=== PATIENT | male | born 1985 | race Hispanic/Latino ===

== ENCOUNTER 2017-07-31 12:07 | Emergency (ER) | payer BC ==
[2017-07-31 12:15] VITALS: BP 135/81; PULSE 79; RESP 20; TEMP 98; O2SAT 98
[2017-07-31] MEDS ORDERED: Liquid Adhesive TOP ONE (12:28)
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
--- NOTE | 2017-07-31 14:59 | RAD ---
PROCEDURE: Radiographs of Nasal Bones HISTORY: Trauma COMPARISON: None available. TECHNIQUE: Frontal and lateral radiographs of the nasal bones. FINDINGS: There are distal bilateral nasal bone fractures with inferior displacement of the distal fragments. . Additionally, there may be an overlying laceration of the skin surface and subcutaneous tissues IMPRESSION: Bilateral nasal bone fracture deformities as described.
== END 2017-07-31 15:26 | disposition home or self-care (01) ==
LOC: H.ER 12:07
DX: S02.2XXA Fracture of nasal bones, initial encounter for closed fracture (principal); S01.21XA Laceration without foreign body of nose, initial encounter; W22.8XXA Striking against or struck by other objects, initial encounter; Y92.89 Other specified places as the place of occurrence of the external cause